=== PATIENT | female | born 1990 | race Caucasian/White ===

== ENCOUNTER 2016-12-25 22:19 | Emergency (ER) | payer BC ==
[~2016-12-25] VITALS: Ht 167.6 cm; Wt 78.9 kg
[2016-12-25 22:21] VITALS: TEMP 36.9; Ht 167.6 cm; Wt 78.9 kg
[2016-12-25] MEDS ORDERED: IBUPROFEN 600 MG TAB PO STA (22:31)
[2016-12-25] MEDS ORDERED: ALBUT/IPRATROP 3MG/0.5MG NEB 3 ML VIAL INH STA (22:31)
--- NOTE | 2016-12-25 23:01 | DIAGNOSTIC IMAGING REPORT ---
CHEST 2 VIEWS ROUTINE CLINICAL HISTORY: cough/fever dyspnea COMPARISON STUDY: No previous studies for comparison. FINDINGS: The bones soft tissues and hemidiaphragms are normal. The cardiomediastinal silhouette is normal. The lungs are clear. The pulmonary vasculature is normal. IMPRESSION: Negative chest. Electronically signed by: Moy Gibson M.D. 12/25/2016 11:00 PM Dictated Date/Time: 12/25/2016 10:59 PM
[2016-12-25] MEDS ORDERED: AMOX875T PO (23:06)
[2016-12-25] MEDS ORDERED: ALBUTEROL HFA 8 GM INHALER INH STA (23:07)
[2016-12-25] MEDS ORDERED: OXYCODONE IR HOME PACK PO ONE (23:15)
[2016-12-25] MEDS ORDERED: AMOXICIL/CLAVU 875MG HOME PACK PO ONE (23:15)
[2016-12-25 23:25] VITALS: BP 139/71; PULSE 92; O2SAT 100
--- NOTE | 2016-12-26 01:41 | EMERGENCY ROOM VISIT NOTE ---
History First contact with patient: 22:25 Chief Complaint: FLU LIKE SX Stated Complaint: COLD, COUGH, PAIN IN L EAR History of Present Illness The patient is a 26 year old female who presents to the Emergency Room with complaints of fever, chills, cough, congestion and left ear pain for the past 3 days. Tmax 101. Patient's been taking Tylenol and Motrin for the pain and fever. Patient denies chest pain, dyspnea, abdominal pain, neck stiffness, sore throat, vomiting, diarrhea. She is tolerating by mouth fluids and food. No recent antibiotics. Review of Systems See HPI for pertinent positives & negatives. A total of 10 systems reviewed and were otherwise negative. Past Medical/Surgical History None Social History Smoking Status: Never Smoker Smokeless Tobacco Use: No Alcohol Use: none Drug Use: none Occupation Status: employed Current/Historical Medications Scheduled Amoxicillin & Pot Clavulanate (Augmentin 875-125 mg), 1 TAB PO BID Allergies Coded Allergies: No Known Allergies (Unverified , 12/25/16) Physical Exam Vital Signs Date Time Temp Pulse Resp B/P Pulse Ox O2 Delivery O2 Flow Rate FiO2 12/25/16 23:25 92 16 139/71 100 12/25/16 22:21 36.9 92 18 131/77 98 Room Air Pain Rating (0-10): 6.0 Physical Exam VITALS: Vitals are noted on the nurse's note and reviewed by myself. Vital signs stable. GENERAL: Pleasant female, in no acute distress, nondiaphoretic, well-developed well-nourished. SKIN: The skin was without rashes, erythema, edema, or bruising. There is no tenting of the skin. Capillary reflex less than 2 seconds. HEAD: Normocephalic atraumatic. EARS: Left tympanic membrane bulging consistent with otitis media, right External auditory canals clear, tympanic membranes pearly fr[place] without erythema or effusion. No mastoid tenderness bilaterally. EYES: Pupils equal round and reactive to light and accommodation. Conjunctivae without injection, sclerae without icterus. Extraocular movements intact. NOSE: Patent, turbinates without inflammation or discharge. No sinus tenderness. MOUTH: Mucous membranes moist. Tonsils are not enlarged. Pharynx without erythema or exudate. Uvula midline. Airway patent. Tongue does not deviate. NECK: Supple without nuchal rigidity. No lymphadenopathy. No thyromegaly. Cervical spine is nontender. No JVD. No meningeal signs HEART: Regular rate and rhythm without murmurs gallops or rubs. LUNGS: Clear to auscultation bilaterally without wheezes, rales or rhonchi. No dullness to percussion. No retractions or accessory muscle use. ABDOMEN: Positive bowel sounds x 4. Normal tympanic percussion. Soft, nontender, without masses or organomegaly. Alba sign negative. No guarding or rebound tenderness. MUSCULOSKELETAL: No muscle atrophy, erythema, or edema noted. NEURO: Patient was alert and oriented to person place and time. Normal sensation to light and sharp touch. No focal neurological deficits. Medical Decision & Procedures Medications Administered Medications (Trade) Dose Ordered Sig/Mira Route Start Time Stop Time Status Last Admin Dose Admin Ibuprofen (Motrin Tab) 600 mg NOW STAT PO 12/25/16 22:31 12/25/16 22:33 DC 12/25/16 22:45 600 MG Albuterol/ Ipratropium (Duoneb) 3 ml NOW STAT INH 12/25/16 22:31 12/25/16 22:33 DC 12/25/16 22:44 3 ML Amoxicillin/ Clavulanate Potassium (Augmentin 875MG Home Pack) 1 homepack UD ONCE PO 12/25/16 23:15 12/25/16 23:16 DC 12/25/16 23:26 1 HOMEPACK Oxycodone HCl (Roxicodone Immediate Rel 5MG Home Pack) 1 homepack UD ONCE PO 12/25/16 23:15 12/25/16 23:16 DC 12/25/16 23:27 1 HOMEPACK Albuterol (Ventolin Hfa Inhaler) 2 puffs ONE STAT INH 12/25/16 23:07 12/25/16 23:08 DC 12/25/16 23:26 2 PUFFS ED Course Prior records/ancillary studies reviewed. Triage Nursing notes reviewed. The patient's history was concerning for fever. Differential diagnosis: Etiologies such as viral syndrome, otitis, pharyngitis, pneumonia, influenza, meningitis, sepsis, bacteremia, as well as others were entertained. Physical examination: Exam seems consistent with otitis media ER treatment provided: Augmentin, Motrin On reassessment the patient felt better. Diagnostics interpreted by me: Imaging studies: Chest x-ray with no acute consolidation or pneumothorax or free air per my interpretation This appears to be consistent with otitis media and URI. Patient was running a fever and was started on antibiotics for this and the ear infection. Patient no signs of meningitis or mastoiditis. She is well-appearing. She is tolerating fluids. She is advised to rest, stay well-hydrated and to take medications as directed. She is advised to follow-up with family care in a few days or here in the ER sooner for high fevers, lethargy, neck stiffness, worsening signs or symptoms or as needed. By the evaluation outlined above emergent etiologies such as pharyngitis, pneumonia, meningitis, sepsis, bacteremia, as well as others were deemed relatively unlikely. The pt informed about the findings as listed above. All questions were answered and pleased with the treatment. Return instructions were outlined and the patient was discharged in stable condition. Outpatient prescription management: Augmentin Referral: The patient was referred back to their primary care physician for follow-up in 2 to 3 days for a recheck of the current condition. 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 All antibiotics can cause diarrhea. If this occurs and you feel worse or it does not resolve in 1-2 days follow up with your doctor or return to the Emergency Department as this could be signs of serious underlying problems. Any medication can cause an allergic reaction, stop the pills immediately and return to the ER for rash, hives, breathing difficulties, or swelling. Acetaminophen(Tylenol) may be used for fever or pain. Use 1000mg every six hours as needed. Avoid using more than 3000mg in a 24 hour period. (AND/OR) Ibuprofen(Motrin, Advil) may be used for fever or pain. Use 600mg every six hours as needed. Take with food. Avoid using more than 2400mg in a 24 hour period. Do not use 2400mg per day for more than three consecutive days without physician direction. Prolonged inappropriate use can lead to stomach upset or ulcers. Oxycodone (OxyIR) 5mg: Take 1-2 pills every four hours for breakthrough pain. Avoid alcohol, operating machinery or dangerous equipment, working on ladders or roofs, DRIVING, or situations where being under the influence may be dangerous. It is recommended to use an [id number] stool softener such as Colace, 100mg twice daily while taking this medication to avoid constipation. Afrin nasal spray: 2-3 sprays to each nostril twice daily as needed for congestion. Do not use for more than 3-4 days because it can lead to worsening rebound congestion. Pseudoephedrine(Sudaphed): 30-60mg every 6 hours as needed for nasal congestion. Do not take this with other stimulant products or supplements. Albuterol Inhaler: Take 2 puffs four times daily for seven days, then as needed. Rest and drink plenty of fluids. Controlling your fever with Tylenol and Ibuprofen as above will make you feel better. Wash your hands after nose blowing, sneezing, or coughing. Most germs are spread through contact, therefore improper hygiene may result in your close contacts and loved ones becoming ill just like you. Continue current medications. Return to the ER for severe headache, neck stiffness, chest pain, difficulty breathing, fevers, vomiting, worsening of your condition, or as needed. Follow up with your primary physician this week for a recheck of your current condition. Work Instructions Return To Work: 2 days Problem Qualifiers Primary Impression: Left otitis media Chronicity: acute Recurrence: not specified as recurrent Spontaneous tympanic membrane rupture: without spontaneous rupture
== END 2016-12-25 23:30 | disposition home or self-care (01) ==
LOC: C.EDB 22:20
DX: H66.92 Otitis media, unspecified, left ear (principal); J06.9 Acute upper respiratory infection, unspecified

== ENCOUNTER 2019-11-15 17:20 | Observation (INO) ==
[2019-11-15] MEDS ORDERED: SODIUM CHLORIDE 0.9% 1000ML 1,000 ML IV ONE (17:41)
[2019-11-15] MEDS ORDERED: ONDANSETRON INJ 2 MG/ML 2 ML VIAL IV STA (17:41)
[2019-11-15 18:11] LABS: Basophils # (auto) 0.01 K/uL (0-0.2); Basophils % (auto) 0.1 %; Eosinophils # (auto) 0.05 K/uL (0-0.5); Eosinophils % (auto) 0.4 %; Hematocrit (blood only) 38.7 % (37-47); Immature Granulocytes # (auto) 0.05 K/uL (0.00-0.02); Immature Granulocytes % (auto) 0.4 %; Lymphocytes # (auto) 1.98 K/uL (1.2-3.4); Lymphocytes % (auto) 14.6 %; Mean Corpuscular Hemoglobin 25.7 pg (25-34); Mean Corpuscular Hgb Conc 33.6 g/dL (32-36); Mean Corpuscular Volume 76.6 fL (80-100); Mean Platelet Volume 10.6 fL (7.4-10.4); Monocytes # (auto) 1.31 K/uL (0.11-0.59); Monocytes % (auto) 9.6 %; Neutrophils # (auto) 10.18 K/uL (1.4-6.5); Neutrophils % (auto) 74.9 %; Platelet Count 410 K/uL (130-400); RDW Coefficient of Variation 15.2 % (11.5-14.5); RDW Standard Deviation 42.5 fL (36.4-46.3); Red Blood Count 5.05 M/uL (4.2-5.4); White Blood Count 13.58 K/uL (4.8-10.8)
[2019-11-15 18:24] LABS: Appearance Urine Clear (Clear); Bacteria Urine Automated Negative (Negative); Bilirubin Urine Negative (Negative); Blood Urine 1+ (Negative); Color Urine Yellow; Epithelial Cell Urine Auto >30 /lpf (0-5); Glucose Urine UA Negative (Negative); Ketones Urine Negative (Negative); Leukocyte Esterase Urine 1+ (Negative); Nitrite Urine Negative (Negative); Protein Urine Negative (Negative); RBC Urine Automated 0-4 /hpf (0-4); Urobilinogen Urine Negative (Negative)
[2019-11-15 18:25] LABS: BUN Creatinine Ratio 15.3 (10-20); Calcium 9.8 mg/dl (8.5-10.1); Creatinine Clr Calc Pharmacy 110.2 ml/min; Est GFR (African American) 109.6; Est GFR (Non-African American) 94.6; Potassium 3.6 mmol/L (3.5-5.1)
[2019-11-15 18:28] LABS: Albumin Globulin Ratio 0.8 (0.9-2); Bilirubin,Total 0.3 mg/dl (0.2-1); Globulin 4.8 gm/dl (2.5-4.0); Total Protein 8.8 gm/dl (6.4-8.2)
[2019-11-15] MEDS ORDERED: IOVERSOL 100ml IV PRN (18:49)
--- NOTE | 2019-11-15 19:04 | CT Scan Report ---
CT OF THE ABDOMEN AND PELVIS WITH CONTRAST CLINICAL HISTORY: Right lower quadrant abdominal pain. COMPARISON STUDY: None. TECHNIQUE: Following IV administration of 90 mL of Optiray-320, axial images of the abdomen and pelvi s were obtained from the lung bases to the proximal femurs. Images were reviewed in the axial, sagitt al, and coronal planes. IV contrast was administered without complication. Automated exposure contro l was utilized for the study. A dose lowering technique was utilized adhering to the principles of A BENNY. CT DOSE: 617.19 mGy.cm FINDINGS: Lung bases are unremarkable. No pneumatosis, free air or portal venous gas is present. The liver, spleen, adrenal glands, kidneys and pancreas are normal. There is no biliary or pancreatic selina endy dilatation. There is no peripancreatic or pericholecystic infiltration. There is no evidence for a bowel obstruction. The appendix is distended, measuring 1.4 cm in caliber. There is appendiceal wal l thickening with moderate periappendiceal infiltration. A 7 mm appendicolith within the mid appendix is noted. There is no free air or abscess. Wall thickening of the cecum is related to acute appendic itis. Prominent adjacent lymph nodes are reactive. The ovaries are not enlarged. No suspicious osseou s lesions are noted. Small fat-containing umbilical hernia is present. Major vasculature is patent. IMPRESSION: Acute appendicitis. No free air or abscess. Moderate to marked periappendiceal infiltrat ion. ACT 112: Negative or not required by law. Electronically signed by: Landon Mendosa M.D. 11/15/2019 7:02 PM
[2019-11-15] MEDS ORDERED: cefOXitin 2,000 MG/60 ML BAG IV STA (19:06)
--- NOTE | 2019-11-15 19:35 | History & Physical Report ---
Date of Service November 15, 2019 Assessment & Plan (1) Acute appendicitis: Patient with acute appendicitis We will proceed with laparoscopic appendectomy possible open appendectomy She and her do understand the risks of bleeding infection bowel and bladder injury They do wish to proceed Acute appendicitis type: unspecified acute appendicitis type Qualified Code(s): K35.80 - Unspecified acute appendicitis History of Present Illness Primary Care Provider: Wilson Ruiz MD Patient is a 29-year-old female with right lower quadrant abdominal pain Found on CAT scan to have evidence of acute appendicitis with an appendicolith He had a baby 6 months ago and is breast-feeding Allergies Allergy/AdvReac Type Severity Reaction Status Date / Time No Known Allergies Allergy Mild Unverified 11/15/19 18:01 Home Medications Home Medications Medication Instructions Recorded Confirmed Type norethindrone (contraceptive) 0.35 mg PO DAILY 11/15/19 11/15/19 History [Sharobel] Past Med/Surg History Medical History Cholestasis Surgical History History of tooth extraction Social History Preferred Language: Beninese marital status: Single Feels Safe at Home: Yes Smoking Status: Never smoker Hx Alcohol Use: No Hx Substance Use: No Review of Systems All systems reviewed & are unremarkable except as noted in HPI & below Physical Exam Physical Exam: She does have right lower quadrant pain to deep palpation Constitutional: well developed and well nourished; no acute distress Respiratory: normal respiratory effort; no respiratory distress Cardiovascular: Rate/Rhythm: regular rate and regular rhythm Skin: no rashes, warm and dry Neurologic: awake Psychiatric: Orientation: alert Results & Data Vital Signs (Past 12 Hours) Vital Signs Temp Pulse Resp BP Pulse Ox 11/15/19 19:01 94 H 16 100 11/15/19 19:00 92 H 16 123/72 100 11/15/19 18:31 92 H 16 99 11/15/19 18:30 98 H 16 136/73 99 11/15/19 18:01 96 H 21 98 11/15/19 18:00 97 H 14 121/72 98 11/15/19 17:55 100 H 14 99 11/15/19 17:53 102 H 12 122/85 98 11/15/19 17:33 36.9 C 111 H 20 140/86 99 I did review her CAT scan
[2019-11-15] MEDS ORDERED: ONDANSETRON INJ 2 MG/ML 2 ML VIAL ONE (19:56)
[2019-11-15] MEDS ORDERED: DEXAMETHASONE SOD INJ 4 MG/ML VIAL ONE (19:56)
[2019-11-15] MEDS ORDERED: SUCCINYLCHOLINE CHLORIDE 20 MG/ML 10 ML VIAL ONE (19:56)
[2019-11-15] MEDS ORDERED: ROCURONIUM BROMIDE 10 MG/ML 5 ML VIAL ONE (19:56)
[2019-11-15] MEDS ORDERED: NEOSTIGMINE METHYLSULFATE 5 MG/5 ML SYR ONE (19:56)
[2019-11-15] MEDS ORDERED: GLYCOPYRROLATE 0.2 MG/ML VIAL ONE (19:56)
[2019-11-15] MEDS ORDERED: MIDAZOLAM HCL 1 MG/ML 2ML VIAL ONE (19:57)
[2019-11-15] MEDS ORDERED: fentaNYL citrate 100 MCG/2 ML VIAL ONE (19:57)
[2019-11-15] MEDS ORDERED: fentaNYL citrate 100 MCG/2 ML VIAL IV PRN (20:09)
[2019-11-15] MEDS ORDERED: ONDANSETRON INJ 2 MG/ML 2 ML VIAL IV PRN ×2 (20:09→22:31)
[2019-11-15] MEDS ORDERED: HYDROmorphone INJ 1 MG/ML SYRINGE IV PRN (20:09)
[2019-11-15] MEDS ORDERED: ePHEDrine sulfate 50 MG/ML AMP IV PRN (20:09)
[2019-11-15] MEDS ORDERED: ATROPINE SULFATE 0.1 MG/ML 10ML SYR IV PRN (20:09)
--- NOTE | 2019-11-15 20:11 | Anesthesiology Consultation ---
Date of Service November 15, 2019 Assessment & Plan (1) Encounter for pre-operative examination: Chart Review Chart Review: Acceptable Risk for Surgery and Patient NOT seen in Pre Admission Testing Consults Requested none History Surgery Operation Date: 11/15/19 19:40 Proposed Procedures p Laparoscopic Appendectomy - Sandeep Lambert MD, FACS Height/Weight Height: 5 ft 6 in Weight: 86.1 kg Allergies Allergy/AdvReac Type Severity Reaction Status Date / Time No Known Allergies Allergy Mild Unverified 11/15/19 18:01 Medications Home Medications Medication Instructions Recorded Confirmed Last Taken norethindrone (contraceptive) 0.35 mg PO DAILY 11/15/19 11/15/19 Unknown [Sharobel] Active Medications Generic Name Dose Route Start Last Admin Trade Name Freq PRN Reason Stop Dose Admin Ioversol 90 ml 11/15/19 18:49 11/15/19 18:49 Optiray 320 100ml IV 11/19/19 18:48 90 ml ONCE PRN Administration Interaction Checking NPO Date Last Intake of Fluids: 11/15/19 Time Last Intake of Fluids: 16:45 Date Last Intake of Solids: 11/15/19 Time Last Intake of Solids: 14:45 Past Medical History Medical History Cholestasis Exercise / Class Metabolic Activity II 4-5 Yardwork/Stairs/Walk up hill Past Surgical History Surgical History History of tooth extraction Past Anesthesia History No Hx of Anesthesia Complications and No Family Hx of Anesthesia Complications History of PONV No Hx of PONV and No Hx of Motion Sickness Social History Smoking Status: Never smoker Hx Alcohol Use: No Hx Substance Use: No Physical Exam Vital Signs Last Vital Signs Temp 36.9 C 11/15/19 17:33 Pulse 116 H 11/15/19 19:58 Resp 19 11/15/19 19:58 BP 146/84 H 11/15/19 19:58 Pulse Ox 99 11/15/19 19:58 Testing Laboratory Results 11/15/19 17:52 11/15/19 17:52 Urine Color Yellow 11/15/19 17:52 Urine Appearance Clear (Clear) 11/15/19 17:52 Urine pH 6.0 (4.5-7.5) 11/15/19 17:52 Ur Specific [place] 1.010 (1.000-1.030) 11/15/19 17:52 Urine Protein Negative (Negative) 11/15/19 17:52 Urine Glucose (UA) Negative (Negative) 11/15/19 17:52 Urine Ketones Negative (Negative) 11/15/19 17:52 Urine Nitrite Negative (Negative) 11/15/19 17:52 Ur Leukocyte Esterase 1+ (Negative) H 11/15/19 17:52 Urine WBC (Auto) 5-10 /hpf (0-5) H 11/15/19 17:52 Urine RBC (Auto) 0-4 /hpf (0-4) 11/15/19 17:52 U Hyaline Cast (Auto) 1-5 /lpf (0-5) 11/15/19 17:52 U Epithel Cells (Auto) >30 /lpf (0-5) H 11/15/19 17:52 Urine Bacteria (Auto) Negative (Negative) 11/15/19 17:52 11/15/19 17:56 POC Ur Test NEG
[2019-11-15] MEDS ORDERED: BUPIVACAINE 0.5 % 5 MG/1 ML MPF 30ML VIAL ONE (20:18)
[2019-11-15] MEDS ORDERED: ACETAMINOPHEN 1,000 MG/100 ML VIAL IV STA (21:25)
--- NOTE | 2019-11-15 21:25 | Post Operative Brief Note ---
PG Immediate Post Op with CF Date of Surgery November 15, 2019 Pre & Post Diagnosis Operation Date: 11/15/19 19:40 Pre-Op Diagnosis: Acute Appendicitis Post-Op Diagnosis: Acute Appendicitis I identified the patient and participated in the time-out.: Yes Procedure Operation Date: 11/15/19 19:40 Actual Procedures p Laparoscopic Appendectomy(Not Applicable) - Sandeep Lambert MD, FACS Surgeon Sandeep Lambert MD, FACS Cattle Inspector nurses Estimated Blood Loss 10 Findings Consistent with Post-Op Diagnosis Specimens Specimen Description: A: Appendix
--- NOTE | 2019-11-15 21:46 | Anesthesiology Progress Note ---
Date of Service November 15, 2019 Anesthesia Post Procedure Vital Signs Vital Signs: Temp Pulse Resp BP Pulse Ox 11/15/19 19:58 116 H 19 146/84 H 99 11/15/19 19:01 94 H 16 100 11/15/19 19:00 92 H 16 123/72 100 11/15/19 18:31 92 H 16 99 11/15/19 18:30 98 H 16 136/73 99 11/15/19 18:01 96 H 21 98 11/15/19 18:00 97 H 14 121/72 98 11/15/19 17:55 100 H 14 99 11/15/19 17:53 102 H 12 122/85 98 11/15/19 17:33 36.9 C 111 H 20 140/86 99 Transfer of Care Handoff Completed per policy Notes Mental Status: alert / awake / arousable and participated in evaluation Patient Amnestic to Procedure: Yes Nausea / Vomiting: adequately controlled Pain: adequately controlled Airway Patency, RR, SpO2: stable & adequate BP & HR: stable & adequate Hydration State: stable & adequate Anesthetic Complications: no major complications apparent and Pt Satisfied with anesthetic care
[2019-11-15] MEDS ORDERED: ACETAMINOPHEN 325 MG TAB PO PRN (22:31)
[2019-11-15] MEDS ORDERED: MoRPHine SULFATE 4 MG/ML 1 ML CARP\\VIAL IV PRN (22:31)
[2019-11-15] MEDS ORDERED: MoRPHine SULFATE 2 MG/ML CARP IV PRN (22:31)
[2019-11-15] MEDS ORDERED: PROMETHAZINE HCL 25 MG in SODIUM CHLORIDE 0.9% 50 ML IV PRN (22:31)
[2019-11-15] MEDS ORDERED: PROMETHAZINE HCL 12.5 MG in SODIUM CHLORIDE 0.9% 50 ML IV PRN (22:31)
[2019-11-15] MEDS ORDERED: SODIUM CHLORIDE 0.9% 1000ML 1,000 ML IV SCH (22:31)
--- NOTE | 2019-11-15 23:13 | Emergency Department Note ---
Entered by Rosie Lo acting as a scribe for Lloyd Brandt DO History of Present Illness General Chief complaint: Abdominal Pain Stated complaint: ABD PAIN, DR SENT R/O APPENDICITIS Source: patient History of Present Illness Onset (ago): day(s) 1 Location: abdomen (began in upper, became generalized at 3:00AM today) Radiation: other (RLQ ) Severity: severe (pt states "intense") Pain Consistency: + constant Maximum Pain Intensity: 6 Current Pain Intensity: 6 Relieved By: + other (slight relief with Advil ) Exacerbated By: + movement (moving right leg ), + rest (laying flat ) and + other (taking a deep breath) Associated symptoms: + denies other symptoms (vomiting, dysuria, abnormal vaginal bleeding/discharge) and + other (nausea) The patient is a 29 year old female who presents to the Emergency Room with complaints of abdominal pain. The patient states she has been experiencing "intense" abdominal pain for the past 24 hours. She explains that her pain began in her upper abdomen and around 3:00AM today her pain radiated throughout her entire abdomen; worse in her RLQ and associated with nausea (no vomiting). The patient rates her pain a 6/10 in severity and was slightly relieved with Advil. Her pain is exacerbated when she takes a deep breath, lays flat, or moving her right leg. The patient was recently seen at [facility] for the same. She does not have a history of abdominal surgeries and her LNMP was 1 week ago. Additionally, her last BM was 1 day ago. Of note, the patient is currently . She denies dysuria and abnormal vaginal bleeding or discharge. The patient offers no further concerns at this time. Home Medications Home Medications Medication Instructions Recorded Confirmed Type norethindrone (contraceptive) 0.35 mg PO DAILY 11/15/19 11/15/19 History [[place]] Allergies Allergy/AdvReac Type Severity Reaction Status Date / Time No Known Allergies Allergy Mild Unverified 11/15/19 18:01 Past Med/Surg History Medical History Cholestasis Surgical History History of tooth extraction Social History Preferred Language: Wol[place] [employer]r Required: No Beliefs That Will Affect Care: None marital status: Single Current Living Situation: Significant Other Current Living Situation Comment: Lloyd Other Information That Helps Us Care for You: No Feels Safe at Home: Yes Safety Concerns: Feels Safe At This Time Smoking Status: Never smoker Hx Alcohol Use: Yes Alcohol type: wine and hard liquor Hx Substance Use: No Review of Systems See HPI for pertinent positives & negatives. and A total of 10 systems reviewed and were otherwise negative Physical Exam Vital Signs Vital Signs - 24 hr 11/15/19 17:33 11/15/19 17:53 11/15/19 17:55 Temperature 36.9 C Temperature Source Oral Pulse Rate 111 H 102 H 100 H Pulse Rate from SpO2 Sensor 99 H 101 H Pulse Rhythm Regular Pulse Strength Normal Respiratory Rate 20 12 14 Respiratory Effort / Characteristics Non-Labored Respiratory Depth Normal Respiratory Pattern Regular Blood Pressure 140/86 122/85 Blood Pressure Mean 104 99 Blood Pressure Position Sitting Pulse Oximetry 99 98 99 Oxygen Delivery Method Room Air Sepsis Recent Fever Within 48 Hours No Sepsis Action Taken by Nursing No Action Required 11/15/19 18:00 11/15/19 18:01 11/15/19 18:30 Temperature Temperature Source Pulse Rate 97 H 96 H 98 H Pulse Rate from SpO2 Sensor 98 H 97 H 98 H Pulse Rhythm Pulse Strength Respiratory Rate 14 21 16 Respiratory Effort / Characteristics Respiratory Depth Respiratory Pattern Blood Pressure 121/72 136/73 Blood Pressure Mean 81 98 Blood Pressure Position Pulse Oximetry 98 98 99 Oxygen Delivery Method Sepsis Recent Fever Within 48 Hours Sepsis Action Taken by Nursing 11/15/19 18:31 11/15/19 19:00 11/15/19 19:01 Temperature Temperature Source Pulse Rate 92 H 92 H 94 H Pulse Rate from SpO2 Sensor 94 H 94 H 94 H Pulse Rhythm Pulse Strength Respiratory Rate 16 16 16 Respiratory Effort / Characteristics Respiratory Depth Respiratory Pattern Blood Pressure 123/72 Blood Pressure Mean 91 Blood Pressure Position Pulse Oximetry 99 100 100 Oxygen Delivery Method Sepsis Recent Fever Within 48 Hours Sepsis Action Taken by Nursing 11/15/19 19:58 Temperature Temperature Source Pulse Rate 116 H Pulse Rate from SpO2 Sensor Pulse Rhythm Pulse Strength Respiratory Rate 19 Respiratory Effort / Characteristics Respiratory Depth Respiratory Pattern Blood Pressure 146/84 H Blood Pressure Mean Blood Pressure Position Pulse Oximetry 99 Oxygen Delivery Method Room Air Sepsis Recent Fever Within 48 Hours Sepsis Action Taken by Nursing GENERAL: alert, sitting up in bed, holding RLQ, well nourished, mild distress, non-toxic EYE EXAM: normal conjunctiva OROPHARYNX: no exudate, no erythema, lips, buccal mucosa, and tongue normal and mucous membranes are moist NECK: supple, no nuchal rigidity, no adenopathy, non-tender LUNGS: Clear to auscultation. Normal chest wall mechanics HEART: no murmurs, S1 normal and S2 normal ABDOMEN: abdomen soft, RLQ tender to palpation, normo-active bowel sounds, no masses, no rebound or guarding. BACK: Back is symmetrical on inspection and there is no deformity, no midline tenderness, no CVA tenderness. SKIN: no rashes and no bruising UPPER EXTREMITIES: upper extremities are grossly normal. LOWER EXTREMITIES: No pitting edema. NEURO EXAM: Normal sensorium, cranial nerves II-XII grossly intact, normal speech, no gross weakness of arms, no gross weakness of legs. Course Course ED COURSE: Vital signs were reviewed and showed normal BP. The patients medical record was reviewed The above diagnostic studies were performed and reviewed. ED treatments and interventions as stated above. 1738: The patient was evaluated in room C06. A complete history and physical examination was performed. 1855: I checked on the patient and updated her on plan to admit. 1909: Upon reevaluation, the patient is resting.I discussed my findings with the patient and she understands and agrees with the treatment plan. Based on the patients age, coexisting illnesses, exam and lab findings the deci david to treat as an inpatient was made. The patient remained stable while under my care. The patient will be evaluated for further management by Dr. Lambert, General Surgery. Administered Medications Sodium Chloride (Nss 1000ml) 1,000 mls @ 80 mls/hr IV .[id number] [facility] Stop: 12/15/19 22:30 Last Admin: 11/15/19 23:10 Dose: 80 mls/hr Documented by: [id number] Discontinued Medications Bupivacaine HCl (Marcaine 0.5% Mpf) Confirm Administered Dose 30 ml .ROUTE .STK- MED ONE Stop: 11/15/19 20:19 Last Admin: 11/15/19 21:21 Dose: 12 ml Documented by: [id number] Sodium Chloride (Nss 1000ml) 1,000 mls @ 999 mls/hr IV .[id number] ONE Stop: 11/15/19 18:41 Last Infusion: 11/15/19 19:02 Dose: 0 mls/hr Documented by: [id number] Admin: 11/15/19 17:56 Dose: 999 mls/hr Documented by: [id number] Cefoxitin Sodium (Mefoxin) 2,000 mg in 60 mls @ 100 mls/hr IV NOW STA Stop: 11/15/19 19:41 Last Infusion: 11/15/19 20:12 Dose: 0 mls/hr Documented by: [id number] Admin: 11/15/19 19:30 Dose: 100 mls/hr Documented by: [id number] Acetaminophen (Ofirmev) 1,000 mg in 100 mls @ 400 mls/hr IV NOW STA Stop: 11/15/19 21:39 Last Admin: 11/15/19 23:10 Dose: 400 mls/hr Documented by: [id number] Ioversol (Optiray 320 100ml) 90 ml IV ONCE PRN PRN Reason: Interaction Checking Stop: 11/19/19 18:48 Last Admin: 11/15/19 18:49 Dose: 90 ml Documented by: [id number] Ondansetron HCl (Zofran) 4 mg IV NOW STA Stop: 11/15/19 17:42 Last Admin: 11/15/19 17:55 Dose: 4 mg Documented by: [id number] Medical Decision Making Differential Diagnosis Differential diagnoses includes but is not limited to gastritis, peptic ulcer disease, GERD, gallbladder disease, pancreatitis, small bowel obstruction, acute coronary syndrome, pericarditis, ischemic bowel, irritable bowel disease, irritable bowel syndrome, appendicitis, diverticulitis, malignancy, hernia, urinary tract infection, torsion, /ectopic (if female), perforation, trauma, infectious. Medical Records Attestation: I reviewed the patient's medical records. Home Medications Current Medication List: was personally reviewed by me Laboratory Data Attestation: I reviewed the patient's lab results. Result diagrams: 11/15/19 17:52 11/15/19 17:52 Lab Results 11/15/19 11/15/19 11/15/19 Range/Units 17:52 17:52 17:52 WBC 13.58 H (4.8-10.8) K/uL RBC 5.05 (4.2-5.4) M/uL Hgb 13.0 (12.0-16.0) g/dL Hct 38.7 (37-47) % MCV 76.6 L (80-100) fL MCH 25.7 (25-34) pg MCHC 33.6 (32-36) g/dL RDW Std Deviation 42.5 (36.4-46.3) fL RDW Coeff of Olvin 15.2 H (11.5-14.5) % Plt Count 410 H (130-400) K/uL MPV 10.6 H (7.4-10.4) fL Immature Gran % (Auto) 0.4 % Neut % (Auto) 74.9 % Lymph % (Auto) 14.6 % Elbert % (Auto) 9.6 % Eos % (Auto) 0.4 % Baso % (Auto) 0.1 % Immature Gran # (Auto) 0.05 H (0.00-0.02) K/uL Neut # (Auto) 10.18 H (1.4-6.5) K/uL Lymph # (Auto) 1.98 (1.2-3.4) K/uL Elbert # (Auto) 1.31 H (0.11-0.59) K/uL Eos # (Auto) 0.05 (0-0.5) K/uL Baso # (Auto) 0.01 (0-0.2) K/uL Sodium 139 (136-145) mmol/L Potassium 3.6 (3.5-5.1) mmol/L Chloride 108 H (98-107) mmol/L Carbon Dioxide 25 (21-32) mmol/L Anion Gap 6.0 (3-11) BUN 13 (7-18) mg/dl Creatinine 0.84 (0.6-1.2) mg/dl Est Cr Clr Drug Dosing 110.2 ml/min Est GFR ( Amer) 109.6 Est GFR (Non-Af Amer) 94.6 BUN/Creatinine Ratio 15.3 (10-20) Glucose 88 (70-99) mg/dl Calcium 9.8 (8.5-10.1) mg/dl Total Bilirubin 0.3 (0.2-1) mg/dl AST 6 L (15-37) U/L ALT 16 (12-78) U/L Alkaline Phosphatase 98 (45-117) U/L Total Protein 8.8 H (6.4-8.2) gm/dl Albumin 4.0 (3.4-5.0) gm/dl Globulin 4.8 H (2.5-4.0) gm/dl Albumin/Globulin Ratio 0.8 L (0.9-2) Lipase 138 (73-393) U/L Urine Color Yellow Urine Appearance Clear (Clear) Urine pH 6.0 (4.5-7.5) Ur Specific [place] 1.010 (1.000-1.030) Urine Protein Negative (Negative) Urine Glucose (UA) Negative (Negative) Urine Ketones Negative (Negative) Urine Blood 1+ H (Negative) Urine Nitrite Negative (Negative) Urine Bilirubin Negative (Negative) Urine Urobilinogen Negative (Negative) Ur Leukocyte Esterase 1+ H (Negative) Urine WBC (Auto) 5-10 H (0-5) /hpf Urine RBC (Auto) 0-4 (0-4) /hpf U Hyaline Cast (Auto) 1-5 (0-5) /lpf U Epithel Cells (Auto) >30 H (0-5) /lpf Urine Bacteria (Auto) Negative (Negative) POC Ur Test (NEG) 11/15/19 Range/Units 17:56 WBC (4.8-10.8) K/uL RBC (4.2-5.4) M/uL Hgb (12.0-16.0) g/dL Hct (37-47) % MCV (80-100) fL MCH (25-34) pg MCHC (32-36) g/dL RDW Std Deviation (36.4-46.3) fL RDW Coeff of Olvin (11.5-14.5) % Plt Count (130-400) K/uL MPV (7.4-10.4) fL Immature Gran % (Auto) % Neut % (Auto) % Lymph % (Auto) % Elbert % (Auto) % Eos % (Auto) % Baso % (Auto) % Immature Gran # (Auto) (0.00-0.02) K/uL Neut # (Auto) (1.4-6.5) K/uL Lymph # (Auto) (1.2-3.4) K/uL Elbert # (Auto) (0.11-0.59) K/uL Eos # (Auto) (0-0.5) K/uL Baso # (Auto) (0-0.2) K/uL Sodium (136-145) mmol/L Potassium (3.5-5.1) mmol/L Chloride (98-107) mmol/L Carbon Dioxide (21-32) mmol/L Anion Gap (3-11) BUN (7-18) mg/dl Creatinine (0.6-1.2) mg/dl Est Cr Clr Drug Dosing ml/min Est GFR ( Amer) Est GFR (Non-Af Amer) BUN/Creatinine Ratio (10-20) Glucose (70-99) mg/dl Calcium (8.5-10.1) mg/dl Total Bilirubin (0.2-1) mg/dl AST (15-37) U/L ALT (12-78) U/L Alkaline Phosphatase (45-117) U/L Total Protein (6.4-8.2) gm/dl Albumin (3.4-5.0) gm/dl Globulin (2.5-4.0) gm/dl Albumin/Globulin Ratio (0.9-2) Lipase (73-393) U/L Urine Color Urine Appearance (Clear) Urine pH (4.5-7.5) Ur Specific [place] (1.000-1.030) Urine Protein (Negative) Urine Glucose (UA) (Negative) Urine Ketones (Negative) Urine Blood (Negative) Urine Nitrite (Negative) Urine Bilirubin (Negative) Urine Urobilinogen (Negative) Ur Leukocyte Esterase (Negative) Urine WBC (Auto) (0-5) /hpf Urine RBC (Auto) (0-4) /hpf U Hyaline Cast (Auto) (0-5) /lpf U Epithel Cells (Auto) (0-5) /lpf Urine Bacteria (Auto) (Negative) POC Ur Test NEG (NEG) Imaging Data Radiologist's Impression: Radiology results as stated below per my review and t he radiologist's interpretation: CT OF THE ABDOMEN AND PELVIS WITH CONTRAST CLINICAL HISTORY: Right lower quadrant abdominal pain. COMPARISON STUDY: None. TECHNIQUE: Following IV administration of 90 mL of Optiray-320, axial images of the abdomen and pelvis were obtained from the lung bases to the proximal femurs. Images were reviewed in the axial, sagittal, and coronal planes. IV contrast was administered without complication. Automated exposure control was utilized for the study. A dose lowering technique was utilized adhering to the principles of ALARA. CT DOSE: 617.19 mGy.cm FINDINGS: Lung bases are unremarkable. No pneumatosis, free air or portal venous gas is present. The liver, spleen, adrenal glands, kidneys and pancreas are normal. There is no biliary or pancreatic ductal dilatation. There is no peripancreatic or pericholecystic infiltration. There is no evidence for a bowel obstruction. The appendix is distended, measuring 1.4 cm in caliber. There is appendiceal wall thickening with moderate periappendiceal infiltration. A 7 mm appendicolith within the mid appendix is noted. There is no free air or abscess. Wall thickening of the cecum is related to acute appendicitis. Prominent adjacent lymph nodes are reactive. The ovaries are not enlarged. No suspicious osseous lesions are noted. Small fat-containing umbilical hernia is present. Major vasculature is patent. IMPRESSION: Acute appendicitis. No free air or abscess. Moderate to marked periappendiceal infiltration. ACT 112: Negative or not required by law. Electronically signed by: Landon Mendosa M.D. 11/15/2019 7:02 PM Blood Pressure Blood Pressure Findings: Normal blood pressure Blood Pressure Disposition: further management by hospitalist [place] Narrative Patient is a 29-year-old female who presents the ER for right lower quadrant abdominal pain which is been present for the past 24 hours. Describes pain as a 6 out of 10 worse with movement. Last menstrual period was about a week ago. IV was established blood work was obtained. Labs show a leukocytosis of 14,000. No significant anemia. BMP along with LFTs bilirubin lipase was fairly unremarkable. UA was contaminated with multiple epithelial cells. wa s negative. Patient was given IV fluids and IV Zofran. CT abdomen pelvis shows acute appendicitis. Patient was given 2 g IV cefoxitin. Discussed with general surgery and patient was admitted for acute appendicitis. Impression & Plan Acute appendicitis, Abdominal pain Discharge Plan Visit Data *Final* Discharge Date/Time: 11/15/19 19:58 Chief Complaint: Abdominal Pain Stated Complaint: ABD PAIN, DR SENT R/O APPENDICITIS ED Provider: Lloyd Brandt Discharge Problem: Acute appendicitis, Abdominal pain Patient Disposition: Admitted As Inpatient Discharge Instructions Interventions: ED Discharge Assessment Last Done: 11/15/19 19:58 Discharge Problem: Acute appendicitis Qualifiers: Acute appendicitis type: unspecified acute appendicitis type Qualified Code(s): K35.80 - Unspecified acute appendicitis Abdominal pain Qualifiers: Abdominal location: right lower quadrant Qualified Code(s): R10.31 - Right lower quadrant pain The scribe's documentation has been prepared under my direction and personally reviewed by me in its entirety. I confirm that the note above accurately reflects all work, treatment, procedures, and medical decision making performed by me.
[2019-11-15] MEDS: IBUPROFEN 600 MG TAB PO PRN (23:39)
--- NOTE | 2019-11-15 23:45 | Operative Report ---
DATE OF OPERATION: 11/15/2019 NAME OF OPERATION: Laparoscopic appendectomy. PREOPERATIVE DIAGNOSIS: Acute appendicitis. POSTOPERATIVE DIAGNOSIS: Acute appendicitis. STAFF SURGEON: Sandeep Lambert MD ANESTHESIA: General. DESCRIPTION OF PROCEDURE: The patient was brought in the operating room and placed on the operating table in supine position. Pneumatic stockings, orogastric tube were placed. 0.5% plain Marcaine was used to anesthetize all incisions. Incision was made above the umbilicus, carrying dissection down, placing a Veress needle producing pneumoperitoneum. An 11 mm port placed at this level. Under visualization, a 5 mm port was placed suprapubically and a 12 mm port placed in left lower quadrant. The cecum was reflected. The appendix was acutely inflamed. There was no abscess, but it was severely adherent to the retroperitoneum. The base of the appendix was transected using the Endo SUNDEEP stapler. Then the mesoappendix was transected using the Endo SUNDEEP stapler with the appendix dissected away from the retroperitoneal tissue placed in an Endobag. The Endobag was removed through the left lower quadrant site which I did have to expand some because of the size of the appendix. After appropriate irrigation and hemostasis, all ports were removed. The umbilical site in left lower quadrant site closed using 0 Vicryl for the umbilicus and a 0 PDS for the left lower quadrant for the fascia. Skin was reapproximated using subcuticular 4-0 Monocryl, Dermabond at the umbilicus and suprapubic area and Steri-Strips for the left lower quadrant. The patient was transferred to recovery room in stable condition. I attest to the content of the Intraoperative Record and any orders documented therein. Any exception s are noted below.
[2019-11-16] MEDS ORDERED: MoRPHine SULFATE IR 15 MG TAB (IMMEDIATE RELEASE) PO PRN (04:45)
[2019-11-16] MEDS: IBUPROFEN 600 MG TAB PO PRN (09:31)
--- NOTE | 2019-11-17 01:19 | Discharge Summary ---
PRINCIPAL DIAGNOSIS: Acute appendicitis. PROCEDURES: The patient underwent laparoscopic appendectomy. HISTORY OF PRESENT ILLNESS: The patient is a 29-year-old female who presented to the Emergency Room with acute abdominal pain, found on CAT scan to have acute appendicitis. She was taken to the operating room where she underwent laparoscopic appendectomy. She tolerated it very well. She has done well overnight and this morning, has no abnormal physical findings except her healing incisions. It was felt stable for discharge home later today to be followed in the surgical clinic within 1-2 weeks.
== END 2019-11-16 10:54 | disposition home or self-care (01) ==
LOC: ED 17:20 → OR 19:58 → 3W 19:58